=== PATIENT | male | born 1975 | race Caucasian/White ===

== ENCOUNTER 2016-10-10 08:33 | Emergency (ER) | payer SELFPAY ==
[~2016-10-10] VITALS: Ht 195.6 cm; Wt 85.0 kg
[2016-10-10 08:42] VITALS: BP 140/77; PULSE 93; RESP 18; TEMP 98.3; O2SAT 99
[2016-10-10 08:53] VITALS: BP 140/77; PULSE 93; RESP 18; O2SAT 99
[2016-10-10] MEDS ORDERED: IBUP-232 PO (08:54)
[2016-10-10] MEDS ORDERED: TYLE325T PO (08:54)
--- NOTE | 2016-10-10 08:57 | PD ---
HPI Chief Complaint: Pain: Acute or Chronic Time Seen by Provider: 08:48 Travel History International Travel<30 days: No Contact w/Intl Traveler<30days: No Traveled to known affect area: No History of Present Illness HPI 41-year-old male states he has history of avascular necrosis and is staying at the [facility]. He states that he is in a nonnarcotic program and was told he needed to come here or [facility] treatment of his pain. he deines SI. He states this is his chronic pain and they took his Aleve. He states he needs prescription even for motrin and Tylenol. He is also requesting tramadol as well. He denies any new trauma. He states this is his chronic pain in he's had multiple prior imaging before. no new complaints or trauma. [facility] Past Medical History Narrative Medical Avascular necrosis of hips Tetanus Vaccination: Unknown Influenza Vaccination: No Past Surgical History Surgical History: No Previous Surgery Social History Alcohol Use: No Tobacco Use: Yes Substance Use: No Allergies-Medications (Allergen,Severity, Reaction): Coded Allergies: No Known Allergies (Unverified , 10/10/16) Reported Meds & Prescriptions Reported Meds & Active Scripts Active Ibuprofen 600 Mg Tab 600 Mg PO Q8H PRN Tylenol (Acetaminophen) 325 Mg Tab 650 Mg PO Q6H PRN Review of Systems Except as stated in HPI: all other systems reviewed are Neg Physical Exam Narrative GENERAL: Well-nourished, well-developed patient. SKIN: Warm and dry. HEAD: Normocephalic and atraumatic. EYES: No injection or drainage. ENT: No nasal drainage noted. NECK: Supple, trachea midline. CARDIOVASCULAR: Regular rate and rhythm RESPIRATORY: No increased effort. No accessory muscle use. EXTREMITIES: No edema. Notes chronic bilateral hip pain NEUROLOGICAL: Awake and alert. Moves extremities and sensory grossly within normal limits. Normal speech. Data Data Last Documented VS Vital Signs Date Time Temp Pulse Resp B/P Pulse Ox O2 Delivery O2 Flow Rate FiO2 10/10/16 08:53 93 18 140/77 99 Room Air 10/10/16 08:42 98.3 Orders Ibuprofen (Motrin) (10/10/16 09:00) Acetaminophen (Tylenol) (10/10/16 09:00) [facility] Medical Decision Making Medical Screen Exam Complete: Yes Emergency Medical Condition: Yes Medical Record Reviewed: Yes (past history confirm) Differential Diagnosis Avascular necrosis, chronic pain, strain Narrative Course Patient agrees to no imaging here. We'll provide with Motrin and Tylenol prescriptions as he states [facility]. I told him that he'll need to get further pain control through a primary care physician, given return instructions, patient also requesting tramadol but given chronic nature this will need to be prescribed through a physician that can monitor him closely Diagnosis Primary Impression: Hip pain, bilateral Patient Instructions: General Instructions Additional Instructions: return with any emergent need, motrin and tylenol as needed with food as prescribed, follow with primary this week Med/Other Pt SpecificInfo: Prescription(s) given Scripts Ibuprofen 600 Mg [id number] Mg PO Q8H PRN (PAIN) #20 TAB Ref 0 Prov:Carrol Lentz MD 10/10/16 Acetaminophen (Tylenol)325 Mg [id number] Mg PO Q6H PRN (PAIN SCALE 1 TO 10) #20 TAB Ref 0 Prov:Carrol Lentz MD 10/10/16 Disposition: 01 DISCHARGE HOME Condition: Stable Carrol Lentz MD Oct 10, 2016 08:56
[2016-10-10] MEDS ORDERED: IBUPROFEN 800 MG TAB PO ONE (09:00)
[2016-10-10] MEDS ORDERED: ACETAMINOPHEN 325 MG TAB PO ONE (09:00)
== END 2016-10-10 09:51 | disposition home or self-care (01) ==
LOC: NEPC 08:33
DX: M25.551 Pain in right hip (principal); M25.552 Pain in left hip; G89.29 Other chronic pain; Z72.0 Tobacco use
CPT/HCPCS: 99283

== ENCOUNTER 2016-10-24 10:06 | Emergency (ER) | payer SELFPAY ==
[~2016-10-24] VITALS: Ht 195.6 cm; Wt 86.0 kg
[~2016-10-24 10:06] MED LIST: IBUP-232 PO; TYLE325T PO
[2016-10-24 10:08] VITALS: BP 119/77; PULSE 98; RESP 14; TEMP 98.9; O2SAT 99
[2016-10-24] MEDS ORDERED: ORPHENADRINE INJ 60 MG/2 ML AMP IM ONE (12:15)
[2016-10-24] MEDS ORDERED: KETOROLAC TROMETHAMINE 60 MG/2 ML (IM) VIAL IM ONE (12:15)
[2016-10-24] MEDS ORDERED: TYLE325T PO (12:18)
[2016-10-24] MEDS ORDERED: IBUP800T23 PO (12:18)
[2016-10-24] MEDS ORDERED: ROBA750T PO (12:18)
--- NOTE | 2016-10-24 12:19 | PD ---
HPI Chief Complaint: Medical Clearance Time Seen by Provider: 12:14 Travel History International Travel<30 days: No Contact w/Intl Traveler<30days: No Traveled to known affect area: No History of Present Illness HPI 41-year-old male presents to the emergency department for evaluation of chronic bilateral hip pain, worse in the left. Patient reports history of avascular necrosis. He is currently in treatment/[employer] he cannot receive any narcotic medications. He states that he has been unable to see a primary care physician due to insurance issues. The patient states he has had this pain since 2012. He has a copy of an MRI which shows avascular necrosis. He denies any fevers or chills. No loss of bowel or bladder control. No saddle anesthesias. Patient states the pain has been the same and is not worse. The patient denies any IV drug use or history of IV drug use. Patient does report dry cough for 3 days. Patient states he was here earlier this month and received prescriptions for ibuprofen and Tylenol. He is asking for similar medications. Patient knows that he needs to follow-up with a primary care physician. [facility] Social History Alcohol Use: No Tobacco Use: Yes Substance Use: No Allergies-Medications (Allergen,Severity, Reaction): Coded Allergies: No Known Allergies (Unverified , 10/24/16) Reported Meds & Prescriptions Reported Meds & Active Scripts Active Ibuprofen 600 Mg Tab 600 Mg PO Q8H PRN Tylenol (Acetaminophen) 325 Mg Tab 650 Mg PO Q6H PRN Review of Systems Except as stated in HPI: all other systems reviewed are Neg Physical Exam Narrative GENERAL: Well-nourished, well-developed male patient, ambulatory. Afebrile. SKIN: Focused skin assessment warm/dry. HEAD: Normocephalic. Atraumatic. EYES: No scleral icterus. No injection or drainage. NECK: Supple, trachea midline. No JVD or lymphadenopathy. CARDIOVASCULAR: Regular rate and rhythm without murmurs, gallops, or rubs. RESPIRATORY: Breath sounds equal bilaterally. No accessory muscle use. Lungs sounds are clear to auscultation. GASTROINTESTINAL: Abdomen soft, non-tender, nondistended. MUSCULOSKELETAL: No cyanosis, or edema. BACK: Nontender without obvious deformity. No CVA tenderness. Data Data Last Documented VS Vital Signs Date Time Temp Pulse Resp B/P Pulse Ox O2 Delivery O2 Flow Rate FiO2 10/24/16 10:08 98.9 98 14 119/77 99 Orders Ketorolac Inj (Toradol Inj) (10/24/16 12:15) Orphenadrine Inj (Norflex Inj) (10/24/16 12:15) [facility] Medical Decision Making Medical Screen Exam Complete: Yes Emergency Medical Condition: Yes Medical Record Reviewed: Yes Differential Diagnosis Chronic pain versus avascular necrosis versus upper respiratory infection versus bronchitis Narrative Course 5-year-old male presents to the emergency department for evaluation of chronic pain. He is undergoing treatment [employer] and is unable to receive any narcotic medications. Patient reports pain has been consistent for the past 4 years. No new injury. No evidence of septic joint on exam. He also reports dry cough for 3 days. Physical exam is reassuring. Patient will be given Toradol 60 mg IM and Norflex 60 mg IM in the emergency department. He'll be discharged with a prescription for ibuprofen, Tylenol, Robaxin. He is encouraged him the need to probably primary care physician for this chronic issue. He is given information the [facility]. The patient was discharged in stable condition with instructions, including return instructions and follow up instructions. Diagnosis Primary Impression: Hip pain, bilateral Additional Impression: Viral upper respiratory infection Referrals: Primary Care Physician call for appointment Patient Instructions: Chronic Pain (ED), General Instructions, Upper Respiratory Infection (ED) Additional Instructions: Take ibuprofen and Tylenol as instructed as needed for pain. Take Robaxin as instructed as needed. Follow-up with your primary care physician. Return to the emergency department for any acute worsening of symptoms. Med/Other Pt SpecificInfo: Prescription(s) given Scripts Methocarbamol (Robaxin)750 Mg [id number] Mg PO TID PRN (MUSCLE SPASM) 10 Days Ref 0 Prov:Cathleen Taylor 10/24/16 Acetaminophen (Tylenol)325 Mg [id number] Mg PO Q4H PRN (PAIN SCALE 1 TO 10) 30 Days Ref 0 Prov:Cathleen Taylor 10/24/16 Ibuprofen 800 Mg [id number] Mg PO TID PRN (PAIN SCALE 1 TO 10) 30 Days Ref 0 Prov:Cathleen Taylor 10/24/16 Disposition: 01 DISCHARGE HOME Condition: Stable Cathleen Taylor Oct 24, 2016 12:19
== END 2016-10-24 13:08 | disposition home or self-care (01) ==
LOC: NEPD 10:06
DX: M25.551 Pain in right hip (principal); M25.552 Pain in left hip; G89.29 Other chronic pain; M87.9 Osteonecrosis, unspecified; J06.9 Acute upper respiratory infection, unspecified; Z72.0 Tobacco use
CPT/HCPCS: 96372; 99284; J1885; J2360

== ENCOUNTER 2016-12-30 10:28 | Emergency (ER) | payer SELFPAY ==
[~2016-12-30] VITALS: Ht 195.6 cm; Wt 95.5 kg
[~2016-12-30 10:28] MED LIST changes: +IBUP800T23 PO; +ROBA750T PO
[2016-12-30 10:29] VITALS: BP 107/80; PULSE 96; RESP 20; TEMP 99; O2SAT 97
[2016-12-30] MEDS ORDERED: IBUP800T23 PO (11:00)
[2016-12-30] MEDS ORDERED: BACT800T5 PO (11:00)
[2016-12-30] MEDS ORDERED: CEPH-460 PO (11:00)
--- NOTE | 2016-12-30 11:04 | PD ---
HPI Chief Complaint: Facial Pain or Swelling Time Seen by Provider: 10:58 Travel History International Travel<30 days: No Contact w/Intl Traveler<30days: No Traveled to known affect area: No History of Present Illness HPI 41-year-old male presents to emergency Department with complaint of swelling to his lower lip 3 days. He says he thinks he was bitten by a bug or something. There was a pimple-like bump just below his lower lip in the tuft of his lower lip hair 3 days ago that he popped and after he popped it he has developed swelling of the lower lip and a lump in his lower lip. Denies airway edema, difficulty breathing, shortness of breath, wheezing. Denies sore throat or difficulty swallowing. Denies fever, vomiting. Has been doing warm compresses to the area and has drained white drainage from the site. Has taken Tylenol and ibuprofen as needed for symptom management. No known allergies. Has no medical complaints. Symptoms are mild in severity. No other modifying factors or associated signs and symptoms. PFSH Past Medical History Musculoskeletal: Yes (avascular necrosis) Seizures: Yes Social History Alcohol Use: No Tobacco Use: Yes Substance Use: Yes (heroin/crack) Allergies-Medications (Allergen,Severity, Reaction): Coded Allergies: No Known Allergies (Unverified , 12/30/16) Reported Meds & Prescriptions Reported Meds & Active Scripts Active Bactrim DS (Sulfamethoxazole-Trimethoprim) 800-160 Mg Tab 1 Tab PO BID 10 Days Keflex (Cephalexin) 500 Mg Cap 500 Mg PO Q6H 10 Days Ibuprofen 800 Mg Tab 800 Mg PO TID PRN 30 Days Robaxin (Methocarbamol) 750 Mg Tab 750 Mg PO TID PRN 10 Days Tylenol (Acetaminophen) 325 Mg Tab 650 Mg PO Q4H PRN 30 Days Ibuprofen 600 Mg Tab 600 Mg PO Q8H PRN Tylenol (Acetaminophen) 325 Mg Tab 650 Mg PO Q6H PRN Review of Systems Except as stated in HPI: all other systems reviewed are Neg Physical Exam Narrative GENERAL: Well-nourished, well-developed male patient, in no acute distress; afebrile, nontoxic-appearing SKIN: There is an indurated area to the lower lip/chin which measures about 0.5 cm in diameter. It is nonfluctuant and there is pointing, but no drainage. The lower lip is edematous and without erythema. HEAD: Atraumatic. Normocephalic. EYES: Pupils equal and round. No scleral icterus. No injection or drainage. ENT: Mucosa pink and moist. No erythema or exudates. No uvular edema. No uvular , palatal, or tonsillar deviation. Airway patent. CARDIOVASCULAR: Regular rate. RESPIRATORY: No accessory muscle use. GASTROINTESTINAL: Flat. MUSCULOSKELETAL: No obvious deformities. No clubbing. No cyanosis. No edema. NEUROLOGICAL: Awake and alert. Oriented 3. No obvious cranial nerve deficits. Motor grossly within normal limits. Normal speech. PSYCHIATRIC: Appropriate mood and affect; insight and judgment normal. Data Data Last Documented VS Vital Signs Date Time Temp Pulse Resp B/P (MAP) Pulse Ox O2 Delivery O2 Flow Rate FiO2 12/30/16 10:29 99.0 96 20 107/80 (89) 97 Room Air MDM Medical Decision Making Medical Screen Exam Complete: Yes Emergency Medical Condition: Yes Medical Record Reviewed: Yes Differential Diagnosis Folliculitis, cellulitis, abscess Narrative Course 41-year-old male with a nonfluctuant abscess/folliculitis to his lower lip/ upper chin area. It is nonfluctuant and has previously drained purulent drainage. He is afebrile and nontoxic-appearing. Denies fever, vomiting. Patient denies airway edema, difficulty breathing. He is in no acute distress and speaking in full sentences. Oropharynx is within normal limits. Keflex, Bactrim, ibuprofen prescribed for home. Instructed Patient to continue warm compresses. Instructed patient to follow up with primary care provider. Patient verbalizes understanding and agreement with treatment plan. Patient is medically cleared and stable for discharge. Discussed reasons to return to the emergency department. Patient agrees with treatment plan. The patients vital signs are stable and the patient is stable for outpatient follow-up and treatment. Patient discharged home, stable and in no acute distress. Diagnosis Primary Impression: Abscess of chin Additional Impression: Swollen lip Referrals: [facility] Primary Care Physician Patient Instructions: Abscess (ED), Abscess Follow-up (ED), General Instructions Additional Instructions: Complete full course of antibiotics Oral steroids as prescribed Warm compresses to the affected area 3-4 times daily Keep area clean and dry Ibuprofen or Tylenol as directed and as needed for pain and inflammation Follow-up with primary care provider Return to emergency department immediately with worsening of symptoms Med/Other Pt SpecificInfo: Prescription(s) given Scripts Sulfamethoxazole-Trimethoprim (Bactrim DS) 800-160 Mg Tab 1 TAB PO BID for Infection for 10 Days, TAB 0 Refills Prov: Rita Hong 12/30/16 Cephalexin (Keflex) 500 Mg Cap 500 MG PO Q6H for Infection for 10 Days, CAP 0 Refills Prov: Rita Hong 12/30/16 Ibuprofen (Ibuprofen) 800 Mg Tab 800 MG PO TID Y for PAIN SCALE 1 TO 10 for 30 Days, TAB 0 Refills Prov: Rita Hong 12/30/16 Disposition: 01 DISCHARGE HOME Condition: Stable Rita Hong Dec 30, 2016 11:04
== END 2016-12-30 11:24 | disposition home or self-care (01) ==
LOC: NEPK 10:28
DX: L02.01 Cutaneous abscess of face (principal); F17.290 Nicotine dependence, other tobacco product, uncomplicated
CPT/HCPCS: 99284